=== PATIENT | male | born 1995 | race Two or more races ===

== ENCOUNTER 2022-07-08 08:58 | Emergency (ER) | payer MEDICAID, OTHER ==
[~2022-07-08] VITALS: Ht 185.4 cm; Wt 109.0 kg
[2022-07-08] MEDS ORDERED: MECLIZINE HCL 25 MG TAB PO ONE (12:45)
[2022-07-08] MEDS ORDERED: IBUPROFEN 600 MG TAB PO ONE (12:45)
[2022-07-08] MEDS ORDERED: MECL-111 PO (12:53)
[2022-07-08] MEDS ORDERED: IBUP600T28 PO (12:53)
[2022-07-08] MEDS ORDERED: CYCL-839 PO (12:53)
[2022-07-08 13:15] VITALS: BP 120/79
== END 2022-07-08 13:31 | disposition home or self-care (01) ==
LOC: EDBD 08:58 → ER 08:58
DX: S06.0XAA Concussion with loss of consciousness status unknown, initial encounter (principal); S16.1XXA Strain of muscle, fascia and tendon at neck level, initial encounter; Z88.1 Allergy status to other antibiotic agents; V89.2XXA Person injured in unspecified motor-vehicle accident, traffic, initial encounter; Y93.89 Activity, other specified; Y92.89 Other specified places as the place of occurrence of the external cause; Y99.8 Other external cause status
CPT/HCPCS: 70450; 72125; 93005; 99284; J8597